=== PATIENT | female | born 1955 | race Caucasian/White ===

== ENCOUNTER → 2016-04-30 | Day surgery (SDC) | payer BC ==
[~2016-04-30] MED LIST: ALPRAZOLAM0.25 MG PO; ALTOPREV40 MG; ASPIRIN PO; CELEXA; COZAAR; HCTZ PO; HYDROCODON-ACE1 EAC9 PO; JANUVIA50 MG PO; LISINOPRIL PO; MEVACOR PO; NABUMETONE PO; PEPCID AC20 MG PO; PLAVIX PO; ULTRAM; VITAMIN D2400 UNIT
--- NOTE | ~2016-04-30 | OR ---
Unit #: [id number] #: [id number] Patient: RADHA SANCHEZ [id number] [address] [place], [place] [address] [id number] O MR#: [id number] NAME: RADHA SANCHEZ ROOM: Date of Procedure: 04/30/2016 Admission Date: 04/30/2016 Surgeon: Russ Hardy III, M.D. : 1955 Attending Physician: Russ Hardy III, M.D. Primary Care Physician: Leno Contreras M.D. OPERATIVE REPORT PREOPERATIVE DIAGNOSIS Family history of colon cancer. POSTOPERATIVE DIAGNOSIS 3 colon polyps listed below. PROCEDURES PERFORMED Colonoscopy to cecum with snare polypectomy x2 and cold biopsy x1. ANESTHESIA 10 mg of Versed and 100 mg of Demerol. SPECIMEN Polyps labeled and sent to pathology. COMPLICATIONS None apparent. INDICATIONS FOR PROCEDURE This is a 60-year-old lady, who is here today for screening colonoscopy. Her mom from colon cancer. DESCRIPTION OF PROCEDURE After consent was obtained, the patient was brought to the endoscopy suite and placed in the left lateral decubitus position. We titrated the above sedation and I performed a rectal exam and did not feel any masses. The scope was placed within the rectal vault. Air was insufflated. I navigated the scope through a very tortuous and redundant colon all the way to the cecum. She had normal mucosa. No evidence of any diverticular disease. She had 3 polyps, two of which were adenomatous appearing and they were located the first at 50 cm and the second near the hepatic flexure. She also had a third small hyperplastic appearing polyp adjacent to the one at the hepatic flexure. The two larger polyps were removed with snare polypectomy technique and sent to pathology. This small hyperplastic polyp was removed with cold biopsy forceps. The two polyps from the hepatic flexure were sent in the same container. The scope was retroflexed within the rectum. No other masses were seen. The scope was then carefully withdrawn. The patient tolerated the procedure without any problems and returned to the recovery room in stable condition. I have her call my office early next week for biopsy results. Unit #: [id number] #: [id number] Patient: SANCHEZ,RADHA A Dictated by... Russ Hardy III, M.D. VCL/kim TD: 05/01/2016 00:59 JOB #: [id number] OPERATIVE REPORT X Russ Hardy III, MD X PROCEDURE OPERATIVE NOTE
[2016-04-30 09:17] LABS: BASOPHIL# 0.1 X10e3 (0-0.3); BASOPHIL% 1.2 % (0-2.5); EOSINOPHIL# 0.2 X10e3 (0-0.7); EOSINOPHIL% 2.6 % (0.0-7.0); HEMATOCRIT 36.6 % (35.0-45.0); HEMOGLOBIN 11.9 gm/dL (12.0-16.0); LYMPHOCYTE# 1.5 X10e3 (1.0-3.5); LYMPHOCYTE% 22.2 % (17.0-45.0); MEAN CELL VOLUME 87.1 FL (83-96); MEAN CORPUSCULAR HEMOGLOBIN 28.4 PG (28-34); MEAN CORPUSCULAR HGB CONC 32.6 g/dL (30-36); MONOCYTE# 0.5 X10e3 (0-1.0); MONOCYTE% 6.9 % (3.0-12.0); NEUTROPHIL# 4.6 X10e3 (1.5-7.1); NEUTROPHIL% 67.1 % (40-75); PLATELET COUNT 232 X10e3 (140-420); RED CELL DISTRIBUTION WIDTH 14.1 % (11.0-15.5); WHITE BLOOD COUNT 6.9 X10e3 (4.0-10.5)
[2016-04-30 09:27] LABS: DIFF IND NO
[2016-04-30 09:36] LABS: PROTHROMBIN TIME (PATIENT) 10.6 SECONDS (9.6-11.5)
[2016-04-30 09:39] LABS: CALCIUM SERUM 8.7 mg/dL (8.4-10.2); CREATININE SERUM 1.8 mg/dL (0.6-1.4); GLOM FILT RATE Estimated 30.3 mL/min (>60); POTASSIUM 4.1 mmol/L (3.5-5.1)
== END | disposition home or self-care (01) ==
LOC: COPS 07:37
PROVIDERS: Surgery
DX: Z12.11 Encounter for screening for malignant neoplasm of colon (principal); D12.3 Benign neoplasm of transverse colon; N18.3 Chronic kidney disease, stage 3 (moderate); K21.9 Gastro-esophageal reflux disease without esophagitis; F41.1 Generalized anxiety disorder; E11.51 Type 2 diabetes mellitus with diabetic peripheral angiopathy without gangrene; I12.9 Hypertensive chronic kidney disease with stage 1 through stage 4 chronic kidney disease, or unspecified chronic kidney disease; E78.00 Pure hypercholesterolemia, unspecified; E78.5 Hyperlipidemia, unspecified; E66.9 Obesity, unspecified; M19.90 Unspecified osteoarthritis, unspecified site; G89.29 Other chronic pain; M17.9 Osteoarthritis of knee, unspecified; Z87.01 Personal history of pneumonia (recurrent); Z90.710 Acquired absence of both cervix and uterus; Z90.49 Acquired absence of other specified parts of digestive tract; Z98.890 Other specified postprocedural states; Z88.2 Allergy status to sulfonamides; Z88.1 Allergy status to other antibiotic agents; Z91.040 Latex allergy status; Z86.718 Personal history of other venous thrombosis and embolism; Z80.0 Family history of malignant neoplasm of digestive organs; Z79.02 Long term (current) use of antithrombotics/antiplatelets; Z79.899 Other long term (current) drug therapy; Z86.19 Personal history of other infectious and parasitic diseases; Z87.891 Personal history of nicotine dependence; Z98.51 Tubal ligation status; Z82.61 Family history of arthritis; Z83.2 Family history of diseases of the blood and blood-forming organs and certain disorders involving the immune mechanism; Z80.3 Family history of malignant neoplasm of breast; Z82.49 Family history of ischemic heart disease and other diseases of the circulatory system; Z82.5 Family history of asthma and other chronic lower respiratory diseases
CPT/HCPCS: 80048; 82947; 85025; 85610; 85730; 88305; J2175; J2250

== ENCOUNTER → 2016-05-07 | Day surgery (SDC) | payer BC ==
--- NOTE | ~2016-05-07 | OR ---
Unit #: [id number] #: [id number] Patient: RADHA SANCHEZ [id number] [address] [place], [place] [address] [id number] O MR#: [id number] NAME: RADHA SANCHEZ ROOM: Date of Procedure: 05/07/2016 Admission Date: 05/07/2016 Surgeon: Russ Hardy III, M.D. : 1955 Attending Physician: Russ aHrdy III, M.D. Primary Care Physician: Leno Contreras M.D. OPERATIVE REPORT PREOPERATIVE DIAGNOSIS Incarcerated incisional hernia. POSTOPERATIVE DIAGNOSIS Incarcerated incisional hernia. PROCEDURE PERFORMED Laparoscopic ventral hernia repair with 6-inch Ventralight mesh. PROCESS CHEMIST Dr. Tevin Wells. SPECIMENS None. COMPLICATIONS None apparent. ESTIMATED BLOOD LOSS Minimal. INDICATIONS FOR PROCEDURE This is a 60-year-old lady, who has a discomforting bulge adjacent to her lap band port. This appears to be an incisional hernia. She is here today for laparoscopic repair. DESCRIPTION OF PROCEDURE After consent was obtained, the patient was brought to the operating room and placed in the supine position. General anesthetic was administered and her abdomen was prepped and draped in standard surgical fashion. I made a 5-mm incision in the right upper quadrant and using an Optiview to enter into the peritoneal cavity without any difficulty. CO2 pneumoperitoneum was then established. Next, a 5-mm port was placed in the right lower quadrant, a 10-mm port was placed in the left upper quadrant, and a 5-mm port was placed in the left lower quadrant. She had most of the omentum that was going up into a ventral defect just lateral to where her lap band port was. I was able to reduce this. I then measured out the defect and it was fairly small approximately about 3 cm. I then took a 6-inch piece of Ventralight mesh and placed 4 corner sutures along the mesh. It was marked on the exterior of the abdomen and then I rolled up the mesh and placed into the abdominal cavity. I then used an Endo passer to collect the 4 tails of the mesh and I oriented the mesh such that the rough side was towards the fascia and the smooth side was Unit #: [id number] #: [id number] Patient: RADHA SANCHEZ towards the viscera. Once the mesh was in good position, I then used SorbaFix Tacker to tack it with both an outer and inner row of tacks. I made sure that the lap band tubing came out in the direction, so that it was oriented properly. There was no tacks placed near the tubing of the catheter. Again, hemostasis was good. I removed all the trocars and released the pneumoperitoneum. I injected all the port sites with 0.25% plain Marcaine. I reapproximated the skin edges with interrupted 4-0 Vicryl subcuticular suture. Steri-Strips were then applied. The patient tolerated the procedure without any problems and returned to the recovery room in stable condition. Dictated by... Russ Hardy III, M.D. VCL/kim TD: 05/08/2016 22:09 JOB #: [id number] OPERATIVE REPORT X Russ Hardy III, MD X PROCEDURE OPERATIVE NOTE
== END | disposition home or self-care (01) ==
LOC: CSUR 08:06
DX: K43.0 Incisional hernia with obstruction, without gangrene (principal); D68.51 Activated protein C resistance; M19.90 Unspecified osteoarthritis, unspecified site; I10 Essential (primary) hypertension; F41.9 Anxiety disorder, unspecified; K21.9 Gastro-esophageal reflux disease without esophagitis; Z88.2 Allergy status to sulfonamides; Z88.1 Allergy status to other antibiotic agents; Z91.040 Latex allergy status; Z86.718 Personal history of other venous thrombosis and embolism; Z79.02 Long term (current) use of antithrombotics/antiplatelets; Z86.73 Personal history of transient ischemic attack (TIA), and cerebral infarction without residual deficits; Z87.440 Personal history of urinary (tract) infections
CPT/HCPCS: 82947; 84295; C1781; J0131; J0690; J2250; J2405; J2550; J3010